=== PATIENT | female | born 1995 | race Caucasian/White ===

== ENCOUNTER 2019-07-31 09:50 | Emergency (ER) | payer SELFPAY ==
[~2019-07-31] VITALS: Ht 160 cm; Wt 65.0 kg
[2019-07-31 10:08] VITALS: BP 158/92
[2019-07-31] MEDS ORDERED: TRAMADOL 50MG TABLET PO ONE (10:45)
== END 2019-07-31 11:26 | disposition home or self-care (01) ==
LOC: ER 09:50
DX: S83.91XA Sprain of unspecified site of right knee, initial encounter (principal); X50.1XXA Overexertion from prolonged static or awkward postures, initial encounter; Y93.89 Activity, other specified; Y92.9 Unspecified place or not applicable; Y99.9 Unspecified external cause status; Z98.84 Bariatric surgery status
CPT/HCPCS: 29505; 73562; 99283